=== PATIENT | female | born 1990 | race Caucasian/White ===

== ENCOUNTER 2022-09-03 11:40 | Emergency (ER) | payer OTHER, SELFPAY ==
[2022-09-03 11:53] VITALS: BP 112/72; PULSE 118; RESP 18; TEMP 36.4; O2SAT 98
--- NOTE | 2022-09-03 12:07 | ED.URI ---
HPI - URI/Sore Throat General Chief Complaint: Upper Respiratory Infection Stated Complaint: cough, back pain, shortness of breath Time Seen by Provider: 09/03/22 12:05 Source: patient, family, RN notes reviewed and old records reviewed Mode of arrival: ambulatory Limitations: no limitations History of Present Illness HPI Narrative: 31-year-old female accompanied by who presents to [facility] with complaints of increasing shortness of breath, tightness to chest,cough increasing over the past 24 hours. Patient reports that they moved here from [place] because of job transfer and have been staying in loft of family. Patient states that father in law's business down stairs and his elementary secretary smokes. Patient feels exposure to second hand smoke has brought on symptoms. Patient denies any fevers, chills or sweats or any other ill symptoms.[facility] home of father in-law MD elicited complaint: cough and other (chest tightness) Pertinent past history: asthma Treatments prior to arrival: other (inhaler) Related Data Home Medications Medication Instructions Recorded Confirmed albuterol sulfate 90 mcg/actuation 2 puff inhalation QID 09/03/22 09/03/22 aerosol inhaler escitalopram oxalate 10 mg tablet 10 mg PO DAILY 09/03/22 09/03/22 (Lexapro) Allergies Allergy/AdvReac Type Severity Reaction Status Date / Time vancomycin Allergy Unknown Verified 09/03/22 11:58 Review of Systems Review of Systems: CONSTITUTIONAL: Denies malaise, chills, sweats, or fever. EYES: Denies visual changes, redness, or discharge. ENT: Reports rhinorrhea, congestion, sinus pain, otalgia and sore throat. CARDIOVASCULAR: Denies chest pain, palpitations, or edema. RESPIRATORY: Reports cough.? Denies acute dyspnea. GASTROINTESTINAL: Denies abdominal pain, nausea, vomiting, diarrhea SKIN: Denies rash or itching. MUSCULOSKELETAL: Denies myalgia. NEUROLOGIC: Denies headache. All systems reviewed & are unremarkable except as noted in HPI and below PMFSH Past Medical History Medical History (Updated 09/04/22 @ 08:15 by Iwona Carey NP) Asthma Depression Social History Social History (Updated 09/04/22 @ 08:14 by Iwona Carey NP) Smoking status: Never smoker Alcohol intake: current Alcohol use details: rare social Substance use type: does not use Gender identity (if verbalized by the patient): Female Comments At time of signature, agree with nursing past medical, surgical, social and family history. There is no relevant family history pertinent to the presenting complaint Exam Narrative: GENERAL: Well-appearing, well-nourished, and in no acute distress. HEAD: Normocephalic EYES: PERRLA, conjunctivae clear ENT: Nares clear, turbinates edematous and erythematous, clear discharge. Mucous membranes moist. TM pearly montero with dull light reflex bilaterally; no tragal tenderness. Oropharynx erythematous without lesions. Tonsils not enlarged and without exudate, no drooling, no hoarseness, no trismus, uvula midline. NECK: Supple. No lymphadenopathy CHEST: Clear to auscultation, breath sounds equal. No wheezing, rhonchi, rales, or stridor. No respiratory distress, speaks in full sentences.reports tightness to chest with breathing with some shortness of breath no tachypnea noted, improvement in aeration and comfort level after breathing treatment. HEART: Regular rate and rhythm. No murmur heard. r SKIN: Warm, dry, no rash. NEURO: Alert and oriented x3. PSYCH: Normal mood and affect Course Course Emergency Course: Patient is aware of diagnosis, understands and agrees to treatment plan.? Anticipatory guidance given.? Patient agrees to follow-up as directed and is aware of reasons to seek care at the emergency department. Portions of this record may have been created with voice recognition software Level of Care: Express Care Visit Vital Signs Vital signs: Vital Signs
[2022-09-03] MEDS: IPRATROPIUM BR 0.02% INH SOLN 0.5 MG/2.5 ML VIAL INHALATION (12:25)
[2022-09-03] MEDS: ALBUTEROL SULFATE NEB 2.5 MG/3 ML INH INHALATION (12:25)
== END 2022-09-03 13:08 | disposition home or self-care (01) ==
PROVIDERS: Emergency Provider Registered Nurse
DX: J45.901 Unspecified asthma with (acute) exacerbation (principal); F32.A Depression, unspecified
CPT/HCPCS: 94640; 99213; G0463